=== PATIENT | female | born 2000 | race Caucasian/White ===

== ENCOUNTER 2023-03-01 11:37 | Emergency (ER) | payer OTHER ==
[2023-03-01] MEDS ORDERED: Ketorolac Tromethamine 30 MG (1 mL) VIAL ONE (13:06)
[2023-03-01] MEDS ORDERED: Cyclobenzaprine 10 MG TAB ONE (13:06)
[2023-03-01] MEDS ORDERED: predniSONE 20 MG TAB ONE (13:06)
[2023-03-01 14:12] LABS: Bilirubin Neg (Negative); Blood, Urine Negative (Negative); Clarity Clear (Clear); Glucose, Urine (Dipstick) Normal (Negative); Ketone, Urine Negative (Negative); Leukocyte Negative (Negative); Nitrite Negative (Negative); Protein, Urine (Dipstick) Negative (Neg-Trace); Specific Gravity, Urine 1.015 (1.005-1.030); Urobilinogen Normal mg/dL (Less than 2)
[2023-03-01 14:25] LABS: RBC/HPF 0-3 HPF (0-3)
[2023-03-01 14:26] LABS: Bacteria/HPF Rare-Few HPF (None Seen); CAUTI Indications for Culture Pelvic or flank pain; Squamous Epithelial 0-3 HPF (0-3); Transitional Epithelial 0-3 HPF (None Seen); WBC/HPF 0-3 HPF (0-3)
[2023-03-01 14:28] LABS: Urine Culture Reflex No No
[2023-03-01] MEDS ORDERED: HYDROcodone/Acetaminophen 5/325 mg Tablet ONE (14:41)
== END 2023-03-01 14:29 | disposition home or self-care (01) ==
LOC: CSHERS 11:37
DX: M54.50 Low back pain, unspecified (principal)
CPT/HCPCS: 72131; 81001; J1885; J7512